=== PATIENT | female | born 1955 | race American Indian/Alaskan Native ===

== ENCOUNTER 2019-03-30 08:37 | Emergency (ER) | payer MEDICARE ==
[2019-03-30 08:50] VITALS: BP 156/92
--- NOTE | 2019-03-30 12:52 | Emergency Department Report ---
ED Extremity Problem HPI - General Chief complaint: Extremity Injury, Lower Stated complaint: SPRAINED ANKLE/FOOT Time Seen by Provider: 03/30/19 11:17 Source: patient Mode of arrival: Ambulatory Limitations: No Limitations - History of Present Illness Initial comments: 63-year-old -[place] Citizen female patient complains of left ankle pain after twisting her ankle one week ago. She rates her pain as a half/10 severity and states the pain worsens with ambulation. Patient states the ankle is swollen and soaking her foot is not helping with the pain. MD Complaint: extremity pain Severity scale (0 -10): 5 - Related Data Previous Rx's Medication Instructions Recorded Last Taken Type Naproxen 500 mg PO BID PRN #14 tablet 03/30/19 Unknown Rx Allergies Allergy/AdvReac Type Severity Reaction Status Date / Time No Known Allergies Allergy Verified 03/30/19 13:06 ED Review of Systems ROS: Stated complaint: SPRAINED ANKLE/FOOT Other details as noted in HPI Comment: All other systems reviewed and negative Musculoskeletal: as per HPI ED Past Medical Hx - Past Medical History Previous Medical History?: Yes Hx Hypertension: Yes Additional medical history: arthritis. sciatica. 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 left wrist - Social History Smoking Status: Never Smoker Substance Use Type: None - Medications Home Medications: Home Medications Medication Instructions Recorded Confirmed Last Taken Type Naproxen 500 mg PO BID PRN #14 tablet 03/30/19 Unknown Rx ED Physical Exam - General Limitations: No Limitations General appearance: alert, in no apparent distress - Head Head exam: Present: atraumatic, normocephalic - Eye Eye exam: Present: normal appearance - Neck Neck exam: Present: normal inspection - Respiratory Respiratory exam: Present: normal lung sounds bilaterally. Absent: respiratory distress - Cardiovascular Cardiovascular Exam: Present: regular rate - Extremities Exam Extremities exam: Present: full ROM, joint swelling (mild left ankle swelling with tenderness to palpation of the lateral malleolus in the Achilles tendon. Normal Pena's test of left ankle) - Back Exam Back exam: Present: normal inspection - Neurological Exam Neurological exam: Present: alert, oriented X3 - Psychiatric Psychiatric exam: Present: normal affect, normal mood - Skin Skin exam: Present: warm, dry, intact, normal color. Absent: rash ED Course Vital Signs 03/30/19 08:45 Temperature 98.2 F Pulse Rate 95 H Respiratory 20 Rate Blood Pressure 156/92 [Right] O2 Sat by Pulse 95 Oximetry ED Medical Decision Making - Radiology Data Radiology results: report reviewed LEFT ANKLE 3 VIEWS INDICATION / CLINICAL INFORMATION: pain after injury. COMPARISON: None available. FINDINGS: Diffuse soft tissue edema. No other significant abnormality. - Medical Decision Making 63-year-old female patient here today with complaints of left ankle pain and swelling 1 week after twisting her ankle. Mild swelling noted on exam. Patient retained normal range of motion of the ankle. X-ray is negative for any bony abnormalities. Vitals are normal. Patient is stable for discharge home with conservative treatment for ankle sprain. Recommend follow-up with orthopedics. Strict return precautions were discussed and needs L a patient who states understanding Critical care attestation.: If time is entered above; I have spent that time in minutes in the direct care of this critically ill patient, excluding procedure time. ED Disposition Clinical Impression: Left ankle sprain Qualifiers: Encounter type: initial encounter Involved ligament of ankle: other ligament Qualified Code(s): S93.492A - Sprain of other ligament of left ankle, initial encounter Disposition: TO HOME OR SELFCARE Is pt being admited?: No Condition: Stable Instructions: Ankle Sprain (ED) Prescriptions: Naproxen 500 mg PO BID PRN #14 tablet PRN Reason: pain Referrals: PUSHPA ESQUIVEL MD [Staff Physician] - 3-5 Days
--- NOTE | 2019-03-30 13:00 | XRay Report ---
LEFT ANKLE 3 VIEWS INDICATION / CLINICAL INFORMATION: pain after injury. COMPARISON: None available. FINDINGS: Diffuse soft tissue edema. No other significant abnormality. Signer Name: Jass Franks MD FACJuan Signed: 03/30/2019 12:56 PM Workstation Name: [id number]
[2019-03-30] MEDS ORDERED: NAPROXEN 500 MG TAB PO ONE (13:30)
== END 2019-03-30 13:52 | disposition home or self-care (01) ==
LOC: ED 08:37
DX: S93.402A Sprain of unspecified ligament of left ankle, initial encounter (principal); I10 Essential (primary) hypertension; M19.90 Unspecified osteoarthritis, unspecified site; Z90.49 Acquired absence of other specified parts of digestive tract; Z90.710 Acquired absence of both cervix and uterus; W01.0XXA Fall on same level from slipping, tripping and stumbling without subsequent striking against object, initial encounter; Y93.89 Activity, other specified; Y92.89 Other specified places as the place of occurrence of the external cause; Y99.8 Other external cause status
CPT/HCPCS: 99283

== ENCOUNTER 2020-08-04 10:49 | Outpatient (CLI) | payer MEDICARE ==
[2020-08-04 12:31] LABS: Blood Urea Nitrogen 16 mg/dL (7-17)
--- NOTE | 2020-08-04 16:15 | Cat Scan Report ---
CTA ABDOMEN AND PELVIS WITHOUT AND WITH IV CONTRAST INDICATION / CLINICAL INFORMATION: Right iliac vein thrombophlebitis/phlebitis.. TECHNIQUE: Axial CT images were obtained through the abdomen and pelvis after injection of IV contrast. 3 plane MIP / 3D reconstructions were produced. All CT scans at this location are performed using CT dose red uction for ALARA by means of automated exposure control. COMPARISON: None available. FINDINGS: Bibasilar volume loss. Noncalcified 7 mm right lower lobe nodule. Gallbladder surgically absent. Liver, pancreas, spleen, and adrenals are unremarkable. Right renal co rtical scarring. Kidneys enhance medically. No suspicious renal mass. No hydronephrosis. Bladder is u nremarkable. Uterus is absent. Stomach, small bowel, and colon demonstrate no evidence of mechanical obstruction or inflammation. No free fluid or lymphadenopathy. Scattered degenerative changes are present throughout the spine. Abdominal aorta is normal in caliber with mild atherosclerotic calcifications. The celiac, SMA, WILLARD, and bilateral renal arteries are patent. The lateral common iliac, internal iliac, and external iliac arteries are patent. The right internal and common iliac veins are normal in caliber, though the right external iliac vein is asymmetrically diminutive, not well visualized distally. Evaluation for patency is limited due to arterial phase imaging. Prominent varices are present in the suprapubic and labia region. Left commo n, internal, and external iliac veins are normal in caliber. IMPRESSION: 1. 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 Further evaluation is l imited due to arterial phase of imaging. 2. No acute abnormality of the abdomen or pelvis. 3. 7 mm noncalcified right lower lobe nodule. Please see recommendations detailed below. INCIDENTAL PULMONARY NODULE RECOMMENDATION RECOMMENDATION: Solid Nodule size 6-8 mm -- Single - Low Risk Patient: CT at 6-12 months, then consider CT at 18-24 months - High Risk Patient: CT at 6-12 months, then CT at 18-24 months Note These recommendations do not apply to lung cancer screening, patients with immunosuppression, o r patients with known primary cancer. Note Newly detected indeterminate nodule in persons 35 years of age or older. Persons under the age of 35 should not receive follow-up unless there is a known primary cancer. Note Perifissural Nodule is a fissure-attached/subpleural, homogeneous, solid nodule that has smooth margins and an oval, lentiform, or triangular shape. They represent about 20% of nodules detected in lung cancer screening, are invariably benign, and do not require follow-up. Nodules 10 mm or larger (or those with suspicious features) will continue to be managed based on the size criteria. Low Risk Patient = minimal or absent history of smoking and of other known risk factors. High Risk Patient = history of smoking or of other known risk factors. Nodule dimensions are average of long and short axes, rounded to the nearest millimeter. Based on 2017 Fleischner Society Guidelines found in Radiology 2017 284:228-243. https://doi.org/10.1148/radiol.7942571134 https://www.ncbi.nlm.nih.gov/pmc/articles/ONR9157452/ Signer Name: Naeem Lim MD Signed: 08/04/2020 4:10 PM Workstation Name: [id number]
== END 2020-08-04 10:50 | disposition home or self-care (01) ==
LOC: CT 10:49
PROVIDERS: ATTEND Surgery Vascular Surgery
DX: I80.211 Phlebitis and thrombophlebitis of right iliac vein (principal); I70.0 Atherosclerosis of aorta; R91.1 Solitary pulmonary nodule
CPT/HCPCS: 36415; 74174; 82565; 84520; Q9967

== ENCOUNTER 2021-02-24 05:18 | Emergency (ER) | payer MEDICARE ==
[2021-02-24 05:22] VITALS: BP 157/88
[2021-02-24] MEDS ORDERED: LORazepam 2 MG/ML VIAL IM STA (05:48)
[2021-02-24] MEDS ORDERED: KETOROLAC 30 MG/1 ML INJ IM ONE (05:48)
--- NOTE | 2021-02-24 06:16 | Emergency Department Report ---
ED General Adult HPI - General Chief complaint: Neck Pain/Injury Stated complaint: neck pain Time Seen by Provider: 02/24/21 05:47 Source: patient Mode of arrival: Wheelchair Limitations: No Limitations - History of Present Illness Initial comments: 65-year-old female who sleeps on her left side woke up with left lateral neck pain and spasm which is progressive worsening for the past 2 to 3 days to the point that the pain has become more significant and presents emerge department seeking treatment of her symptoms. Reports no numbness, no tingling, no headache, no nausea, no vomiting, no chest pain, no shortness of breath. Location: head Radiation: non-radiation Severity scale (0 -10): 10 Quality: dull Consistency: constant Improves with: none Worsens with: none Associated Symptoms: denies: confusion, chest pain, cough, diaphoresis, loss of appetite, malaise, nausea/vomiting, rash, syncope, weakness Treatments Prior to Arrival: none - Related Data Previous Rx's Medication Instructions Recorded Last Taken Type Naproxen 500 mg PO BID PRN #14 tablet 03/30/19 Unknown Rx Meloxicam, Submicronized 10 mg PO DAILY #5 capsule 02/24/21 Unknown Rx [Meloxicam] methOCARBAMOL [Robaxin TAB] 750 mg PO Q8H PRN #14 tablet 02/24/21 Unknown Rx Allergies Allergy/AdvReac Type Severity Reaction Status Date / Time No Known Allergies Allergy Verified 03/30/19 13:06 ED Review of Systems ROS: Stated complaint: neck pain Other details as noted in HPI Comment: All other systems reviewed and negative ED Past Medical Hx - Past Medical History Hx Hypertension: Yes Additional medical history: arthritis. sciatica. 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 left wrist - Social History Smoking Status: Never Smoker Substance Use Type: None - Medications Home Medications: Home Medications Medication Instructions Recorded Confirmed Last Taken Type Naproxen 500 mg PO BID PRN #14 tablet 03/30/19 Unknown Rx Meloxicam, Submicronized 10 mg PO DAILY #5 capsule 02/24/21 Unknown Rx [Meloxicam] methOCARBAMOL [Robaxin TAB] 750 mg PO Q8H PRN #14 tablet 02/24/21 Unknown Rx ED Physical Exam - General Limitations: No Limitations General appearance: alert, in no apparent distress - Head Head exam: Present: atraumatic, normocephalic - Eye Eye exam: Present: normal appearance - ENT ENT exam: Present: mucous membranes moist - Neck Neck exam: Present: normal inspection, tenderness (To left trapezius region with muscle spasms in her right neck with left lateral spasm worse with any palpation and range of motion. No lymphadenopathy is noted.) - Respiratory Respiratory exam: Present: normal lung sounds bilaterally. Absent: respiratory distress - Cardiovascular Cardiovascular Exam: Present: regular rate, normal rhythm. Absent: systolic murmur, diastolic murmur, rubs, gallop - GI/Abdominal GI/Abdominal exam: Present: soft, normal bowel sounds - Extremities Exam Extremities exam: Present: normal inspection - Back Exam Back exam: Present: normal inspection - Neurological Exam Neurological exam: Present: alert, oriented X3 - Psychiatric Psychiatric exam: Present: normal affect, normal mood - Skin Skin exam: Present: warm, dry, intact, normal color. Absent: rash ED Course Vital Signs 02/24/21 02/24/21 05:20 06:05 Temperature 97.6 F Pulse Rate 67 Respiratory 20 18 Rate Blood Pressure 157/88 [Right] O2 Sat by Pulse 99 Oximetry ED Medical Decision Making - Medical Decision Making Symptoms improve after medication Critical care attestation.: If time is entered above; I have spent that time in minutes in the direct care of this critically ill patient, excluding procedure time. ED Disposition Clinical Impression: Wry neck Disposition: 01 HOME / SELF CARE / HOMELESS Is pt being admited?: No Does the pt Need Aspirin: No Condition: Stable Instructions: Acute Torticollis, Adult Prescriptions: Meloxicam, Submicronized [Meloxicam] 10 mg PO DAILY #5 capsule methOCARBAMOL [Robaxin TAB] 750 mg PO Q8H PRN #14 tablet PRN Reason: Pain, Moderate (4-6) Referrals: [facility] [Provider Group] - 3-5 Days
== END 2021-02-24 06:42 | disposition home or self-care (01) ==
LOC: ED 05:18
DX: M43.6 Torticollis (principal); I10 Essential (primary) hypertension; Z90.49 Acquired absence of other specified parts of digestive tract
CPT/HCPCS: 96372; 99282; J1885; J2060